=== PATIENT | female | born 1940 | race Caucasian/White ===

== ENCOUNTER 2016-10-06 02:25 | Emergency (ER) | payer MEDICARE ==
[2016-10-06] MEDS ORDERED: OPTIRAY 350 100 ML VIAL HMH IV ONE (02:26)
[2016-10-06] MEDS ORDERED: ASPIRIN 81 MG CHEW TAB ONE (03:24)
[2016-10-06] MEDS ORDERED: ACETAMINOPHEN 325 MG TAB ONE (03:50)
[2016-10-06] MEDS ORDERED: SODIUM CHLORIDE 0.9% 100 ML IV ONE (04:18)
[2016-10-06] MEDS ORDERED: CEFTRIAXONE 1 GM VIAL ONE (04:18)
[2016-10-06] MEDS ORDERED: SODIUM CHLORIDE 0.9% 1,000 ML ONE (04:41)
== END 2016-10-06 05:01 | disposition other institution (70) ==
LOC: ER 02:25
DX: I82.90 Acute embolism and thrombosis of unspecified vein (principal); N39.0 Urinary tract infection, site not specified; J44.9 Chronic obstructive pulmonary disease, unspecified; E11.9 Type 2 diabetes mellitus without complications; Z79.84 Long term (current) use of oral hypoglycemic drugs
CPT/HCPCS: 36415; 70450; 70496; 70498; 71010; 80047; 80053; 81001; 82553; 82947; 83605; 84484; 85014; 85025; 85384; 85610; 85730; 87040; 87077; 87088; 87186; 93005; 96374; 99285; J0696; Q9967